=== PATIENT | female | born 1980 | race Hispanic/Latino ===

== ENCOUNTER 2016-10-05 08:17 | Emergency (ER) | payer OTHER ==
[~2016-10-05] VITALS: Ht 162.6 cm; Wt 79.5 kg
[~2016-10-05 08:17] MED LIST: CIPR-231 PO; LISI10TA PO; METR500T PO; NORE0.35 PO; ONDA4TAB9 PO
[2016-10-05 08:25] VITALS: BP 136/84; PULSE 74; RESP 16; O2SAT 100
--- NOTE | 2016-10-05 08:31 | ED.REPORT ---
HPI-Chest Pain Under 40 Date of Service October 05, 2016 ED Provider: Isidro Polanco MD A 36 year old female with a history of hypertension, hyperlipidemia, and migraines presents to the ED via EMS from Urgent Care with intermittent left- sided chest pain onset one week ago. The pain is described as "throbbing" and "sharp" in nature, with radiation down her left arm. Associated symptoms include nausea, recent stress, and left arm numbness. The patient denies SOB, lightheadedness, dizziness, cough, vomiting, leg pain, leg swelling, hemoptysis , or other symptoms. She has never had similar symptoms in the past. EMS found the patient with a BP of 155/83. She was given 324 ASA en route. Nursing Notes Stated Complaint: CHEST PAIN Chief Complaint: Chest Pain Nursing Notes Reviewed: Yes Allergies: Coded Allergies: No Known Allergies (Verified , 10/14/15) Scheduled Ciprofloxacin (Cipro) 500 Mg Tablet 500 MG PO BID Lisinopril (Lisinopril) 10 Mg Tablet 10 MG PO DAILY Metronidazole (Flagyl) 500 Mg Tablet 500 MG PO Q8H Norethindrone (Ortho Micronor) 0.35 Mg Tablet 0.35 MG PO DAILY Scheduled PRN Ondansetron ODT (Zofran ODT) 4 Mg Tablet 4 MG PO Q4H PRN PRN For Nausea General Time Seen by MD: 08:30 Chief Complaint Chest pain Hx Obtained From: Patient Arrived By: Ambulance Sudden in Onset?: No Onset Occurred: 1 week ago Symptom Duration: Intermittent Location: : Chest left Quality: Painful, Sharp, Throbbing Radiation: : Arm left Severity: Current: Moderate Severity: Maximum: Moderate Pertinent Negative: Relieved by nothing Context Related History: Reports: Hypertension Recent Healthcare: Recent doctor visit Similar Sx Previous: No Risk Factors PERC Rule PERC Result: PERC rule satisfied Past Medical History Past Medical History Hyperlipidemia Migraines Reports: Hypertension Past Surgical History Tubal Ligation Reports: Cholecystectomy Smoking History Never Smoker Ambulatory Status Independent Review of Systems Constitutional: Denies: Fever Respiratory: Denies: Hemoptysis, Non-productive cough, Shortness of breath Cardiovascular: Reports: Chest pain (Intermittent, left-sided) GI: Reports: Nausea, Denies: Vomiting Musculoskeletal: Reports: Extremity pain (Left arm, denies leg pain), Denies: Extremity swelling Neurologic: Reports: Numbness (Left arm), Denies: Dizziness, Lightheaded Psychiatric: Reports: Stress Complete sys rev & neg: except as marked. Physical Exam Initial Vital Signs Vital Signs (First) Date Time Temp Pulse Resp B/P Pulse Ox O2 Delivery O2 Flow Rate FiO2 10/05/16 08:25 36.7 74 16 136/84 100 Room Air Initial VS: Reviewed Head / Eyes: Atraumatic, Normocephalic ENT: Conjunctiva normal, No scleral icterus Neck: Supple, Full range of motion Skin: Warm, Dry, No cyanosis Neurologic: Alert, Oriented, Nonfocal General/Constitutional: Awake, Alert Respiratory / Chest: Breath sounds NL, Breath sounds = bilat, No respiratory distress, No chest tenderness Cardiovascular: Heart rate NL, Regular rhythm, Heart sounds NL, No murmurs Psychiatric: Affect NL Abnormal Mood/Affect: Positive: Anxious Interpretation & Diagnostics Lab Results Interpretation Result Diagram: 10/05/16 0838 10/05/16 0838 Test 10/05/16 08:38 White Blood Count 5.5th/mm3 (3.8-10.1) Red Blood Count 4.59mil/mm3 (3.90-5.20) Hemoglobin 14.3g/dL (12.0-15.6) Hematocrit 42.1% (35.0-46.0) Mean Corpuscular Volume 91.7fL (81-100) Mean Corpuscular Hemoglobin 31.2pg (27.0-35.0) Mean Corpuscular Hemoglobin Concent 34.0% (32.0-37.0) Red Cell Distribution Width 13.1% (12.3-15.4) Platelet Count 251bil/L (150-400) Neutrophils (%) (Auto) 55.4% (40-74) Lymphocytes (%) (Auto) 36.6% (14-46) Monocytes (%) (Auto) 6.2% (4-12) Eosinophils (%) (Auto) 1.1% (0-5) Basophils (%) (Auto) 0.5% (0-3) Sodium Level 137mEq/L (134-144) Potassium Level 3.8mEq/L (3.5-5.2) Chloride Level 99mEq/L (97-108) Carbon Dioxide Level 25mmol/L (18-29) Blood Urea Nitrogen 14mg/dL (6-20) Creatinine 0.50mg/dL (0.57-1.00) Estimat Glomerular Filtration Rate 199mL/min (>59) Glucose Level 93mg/dL (60-99) Calcium Level 9.4mg/dL (8.5-10.1) Magnesium Level 2.0mg/dL (1.6-2.6) Total Bilirubin 0.5mg/dL (0.0-1.2) Aspartate Amino Transf (AST/SGOT) 42U/L (0-50) Alanine Aminotransferase (ALT/SGPT) 38U/L (0-32) Alkaline Phosphatase 58U/L (25-150) Troponin T < 0.010ug/L (0.0-0.011) Total Protein 7.5g/dL (6.4-8.4) Albumin 4.6g/dL (3.4-5.0) ECG Interpretation ECG Interpretation: Sinus rhythm rate [address] or T wave changes Time: 20:48 Interpreted by: ED physician X-Ray Chest Interpretation Chest Xray Interpretation: IMPRESSION: No source for chest pain identified radiographically. Dictated by: Oswaldo Santana RRA Interpreted: Nallely Layton MD on 10/05/2016 at 9:03 View: Portable, 1 view Interpretation / Wet Read by: Interpret - Radiologist Re-Eval/Medical Decision Med Decision/Clinical Course 36-year-old female with constant left-sided chest pressure 1 week. She reports significant stressors at home. She has never had anything like this before. EKG no ischemia. Troponins negative. Chest x-ray clear. Perc neg. labs are stable. Symptoms improved with Toradol. She has no reproducible tenderness. Possibly musculoskeletal versus anxiety. Discussed with patient and she would like to go home. Will follow up with primary doctor on Saturday. Source of Hx: Old records Re-Evaluation/Progress #1: Time of Eval: 09:50 Patient Status: Condition unchanged Re-Evaluation/Progress Note: Patient's pain has improved but not resolved. Discussed x-ray, lab, and EKG results. Re-Evaluation/Progress #2: Time of Eval: 10:17 Patient Status: Condition improved Re-Evaluation/Progress Note: Discussed with patient all results, diagnosis, and plan for discharge. Follow-up and return to the ER instructions given. Patient agrees with plan for care and all questions were addressed. Counseled Regarding: Diagnosis, Lab results, Need for follow-up, When/why to return to ED Discharge & Departure Primary Impression: Non-cardiac chest pain Additional Impression: Anxiety Disposition: Home Discharge Condition All VS Reviewed: Yes Condition: Improved Patient Instructions: Chest Pain (ED), Generalized Anxiety Disorder (GEN) Additional Instructions: Thank you for entrusting us with your care. Your x-ray, labs, and EKG were reassuring for any serious illness today. Call your primary care provider on Saturday for a follow-up appointment. Return to the ER with any new or worsening symptoms including worsening chest pain or trouble breathing. Referrals: Isa Joyce MD (PCP) Marcio Attestation Portions of this note were transcribed by Joselin Barth. I, Dr. Polanco, personally performed the history, physical exam, and medical decision-making; I reviewed and confirmed the accuracy of the information in the transcribed note. Signed by: Marcio Grewal, 10/05/2016, 12:15 copies to: Isa Joyce MD, Ben M MD October 05, 2016 08:31 JOSELIN BARTH October 05, 2016 08:38
[2016-10-05 08:42] LABS: BASOPHILS % (AUTO) 0.5 % (0-3); EOSINOPHILS % (AUTO) 1.1 % (0-5); MONOCYTES % (AUTO) 6.2 % (4-12); Mean Corpuscular Hemoglobin 31.2 pg (27.0-35.0); Mean Corpuscular Volume 91.7 fL (81-100); NEUTROPHILS % (AUTO) 55.4 % (40-74); Platelet Count 251 bil/L (150-400)
--- NOTE | 2016-10-05 09:04 | DRSVH ---
PROCEDURE: X-RAY CHEST ONE VIEW, PORTABLE ([id number]) INDICATIONS: chest pain TECHNIQUE: One view of the chest was acquired. COMPARISON: None. FINDINGS: Surgical changes and devices: None. Lungs and pleura: No pleural effusions or pneumothorax. Lungs are clear. Mediastinum: Mediastinal contours appear normal. Heart size is normal. Bones and chest wall: No suspicious bony lesions. Overlying soft tissues appear unremarkable. IMPRESSION: No source for chest pain identified radiographically. Dictated by: Oswaldo Santana [facility] Interpreted: Nallely Layton MD on 10/05/2016 at 9:03 Transcribed by: LETA on 10/05/2016 at 9:03 Approved by: Nallely Layton MD, PhD on 10/05/2016 at 15:10
[2016-10-05 09:25] LABS: TROPONIN T < 0.010 ug/L (0.0-0.011)
[2016-10-05 10:54] VITALS: BP 144/90; PULSE 73; RESP 18; O2SAT 100
== END 2016-10-05 10:57 | disposition home or self-care (01) ==
LOC: EDBD 08:17 → EDUNIT# 08:17 → EDSEX 08:17 → SED 08:17
DX: R07.89 Other chest pain (principal); R11.0 Nausea; R20.0 Anesthesia of skin; E78.5 Hyperlipidemia, unspecified; I10 Essential (primary) hypertension
CPT/HCPCS: 36415; 71010; 80053; 83735; 84484; 85025; 93005; 96374; 96375; 99285; J1885; J2060